=== PATIENT | female | born 1980 ===

== ENCOUNTER 2017-01-01 22:08 | Emergency (ER) | payer OTHER ==
[2017-01-01 22:08] VITALS: BMI 25.3
[2017-01-01 22:28] VITALS: RESP 20; O2SAT 98
[2017-01-01 22:45] LABS: RBC URINE 1 /hpf (0-3); URINE BILIRUBIN NEGATIVE (NEGATIVE); URINE BLOOD 2+ (NEGATIVE); URINE COLOR Yellow (YELLOW); URINE GLUCOSE (UA) NORMAL (Normal); URINE KETONE NEGATIVE (NEGATIVE); URINE LEUKOCYTE ESTERASE 1+ Leu/uL (Negative); URINE PROTEIN NEGATIVE (NEGATIVE); URINE UROBILINOGEN NORMAL mg/dL (0.2-1.0); WBC URINE 2 /hpf (0-5)
--- NOTE | 2017-01-01 22:52 | C.PDOC ---
History Of Present Illness 36 y/o female presents to ED with c/o of feeling tired, sleepy and nauseus x few days. Pt reports missed period LMP5. Pt denies abdominal pain, vaginal bleeding, but c/o of mild vaginal discharge with itching similar to past yeast infection. Pt is requesting test Time Seen by Provider: 01/01/17 22:35 Chief Complaint (Nursing): Female Genitourinary History Per: Patient History/Exam Limitations: no limitations Current Symptoms Are (Timing): Still Present Past Medical History Vital Signs: Last Vital Signs Temp 98.2 F 01/01/17 23:06 Pulse 106 H 01/01/17 23:06 Resp 20 01/01/17 23:06 BP 115/73 01/01/17 23:06 Pulse Ox 98 01/01/17 23:11 - Medical History PMH: Hypothyroidism Denies: Chronic Kidney Disease - [facility] Procedures REMOV INTRALUM VAG FB (12/24/14) Family History: States: Unknown Family Hx - Social History Hx Tobacco Use: No Hx Alcohol Use: No Hx Substance Use: No - Immunization History Hx Tetanus Toxoid Vaccination: No Hx Influenza Vaccination: Yes Hx Pneumococcal Vaccination: No Review Of Systems Constitutional: Negative for: Fever Gastrointestinal: Positive for: Nausea. Negative for: Vomiting, Abdominal Pain Genitourinary: Positive for: Vaginal Discharge, Other (vaginal itching). Negative for: Dysuria Musculoskeletal: Negative for: Back Pain Neurological: Negative for: Weakness, Numbness Physical Exam - Physical Exam Appears: Well, Non-toxic Skin: Normal Color Eye(s): bilateral: Normal Inspection, PERRL, Other (no conjunctival pallor) Cardiovascular: Rhythm Regular Respiratory: Normal Breath Sounds, No Wheezing Gastrointestinal/Abdominal: Normal Exam, Soft, No Tenderness Back: Normal Inspection, No CVA Tenderness Pelvic: Other (refused ) ED Course And Treatment O2 Sat by Pulse Oximetry: 98 Pulse Ox Interpretation: Normal Progress Note: Pt with (+) UCG, now asymptomatic, VSS. Pt reports no other c/o, Results d/w pt and she will follow up with COMMUNITY SUPPORT SPECIALIST for care. Return precautions given Disposition Counseled Patient/Family Regarding: Diagnosis, Need For Followup - Disposition Disposition: HOME/ ROUTINE Disposition Time: 23:07 Condition: STABLE Additional Instructions: Please follow up with OB/ CNC MILLING MACHINE OPERATOR Return to ER if worse Prescriptions: Clotrimazole 1% Vaginal [Lotrimin 1% Vaginal] 45 applic VG HS #1 tube Instructions: (ED), Vaginitis (ED) - Clinical Impression Clinical Impression: Vaginal candidiasis,
[2017-01-01 23:07] VITALS: BP 115/73; PULSE 106; TEMP 98.2
== END 2017-01-01 23:14 | disposition home or self-care (01) ==
LOC: C.ER 22:08
DX: B37.3 Candidiasis of vulva and vagina (principal); O98.811 Other maternal infectious and parasitic diseases complicating pregnancy, first trimester; Z3A.00 Weeks of gestation of pregnancy not specified

== ENCOUNTER 2017-03-14 23:34 | Emergency (ER) | payer OTHER ==
[2017-03-15 00:15] VITALS: BMI 24.9
[2017-03-15] MEDS ORDERED: Sodium Chloride 0.9% 1,000 ML IV ONE (00:20)
[2017-03-15 00:37] LABS: BASO % 0.4 % (0.0-2.0); EOS # 0.2 K/uL (0.0-0.7); EOS % 2.6 % (0.0-4.0); LYMPH # 1.6 K/uL (1.0-4.3); LYMPH % 17.2 % (20.0-40.0); MEAN CELL VOLUME 90.8 fL (81.0-99.0); MEAN CORPUSCULAR HEMOGLOBIN 31.1 pg (27.0-31.0); MEAN CORPUSCULAR HGB CONC 34.2 g/dL (33.0-37.0); MEAN PLATELET VOLUME 8.3 fL (7.2-11.7); MONO # 0.6 K/uL (0.0-0.8); MONO % 6.6 % (0.0-10.0); RED CELL DISTRIBUTION WIDTH 13.5 % (11.5-14.5); WHITE BLOOD COUNT 9.5 K/uL (4.8-10.8)
--- NOTE | 2017-03-15 00:50 | C.PDOC ---
History Of Present Illness 36 year old female presents to the ER after she went to the bathroom today noticed ludy amount of bright red blood when she wiped and some in the toilet. Patient states she had some pelvic cramping earlier today. Patient is currently approx 16 weeks , . She denies current pain, dysuria, vomiting, diarrhea, or fever. Time Seen by Provider: 03/14/17 23:52 Chief Complaint (Nursing): Female Genitourinary History Per: Patient History/Exam Limitations: no limitations Onset/Duration Of Symptoms: Hrs Current Symptoms Are (Timing): Better Severity: Mild Location Of Pain/Discomfort: Other (Pelvic) Radiation Of Pain To:: None Quality Of Discomfort: Cramping Associated Symptoms: denies: Fever, Vomiting, Diarrhea Exacerbating Factors: None Alleviating Factors: None Abnormal Vaginal Bleeding: Yes Past Medical History Reviewed: Historical Data, Nursing Documentation, Vital Signs Vital Signs: Last Vital Signs Temp 98.3 F 03/15/17 02:56 Pulse 82 03/15/17 02:56 Resp 20 03/15/17 02:56 BP 97/58 L 03/15/17 02:56 Pulse Ox 98 03/15/17 02:56 - Medical History PMH: Hypothyroidism - [facility] Procedures REMOV INTRALUM VAG FB (12/24/14) Family History: States: No Known Family Hx - Social History Hx Tobacco Use: No Hx Alcohol Use: No Hx Substance Use: No - Immunization History Hx Tetanus Toxoid Vaccination: No Hx Influenza Vaccination: Yes Hx Pneumococcal Vaccination: No Review Of Systems Except As Marked, All Systems Reviewed And Found Negative. Constitutional: Negative for: Fever Cardiovascular: Negative for: Chest Pain Respiratory: Negative for: Shortness of Breath Gastrointestinal: Negative for: Nausea, Vomiting, Abdominal Pain, Diarrhea Genitourinary: Positive for: Vaginal Bleeding, Pelvic Pain. Negative for: Dysuria, Vaginal Discharge Physical Exam - Physical Exam Appears: Well, Non-toxic, No Acute Distress Skin: Normal Color, Warm, Dry Oral Mucosa: Moist Cardiovascular: Rhythm Regular Respiratory: Normal Breath Sounds, No Rales, No Rhonchi, No Wheezing Gastrointestinal/Abdominal: Bowel Sounds, Soft, Tenderness (Mild TTP suprapubic area), No Guarding, No Rebound, Other (Gravid. Negative Mcburney's, Negative Comer's.) Back: No CVA Tenderness Neurological/Psych: Oriented x3 ED Course And Treatment - Laboratory Results Result Diagrams: 03/15/17 00:33 03/15/17 00:33 O2 Sat by Pulse Oximetry: 98 (RA) Pulse Ox Interpretation: Normal - CT Scan/US OB US Other Rad Studies (CT/US): Read By Radiologist, Radiology Report Reviewed CT/US Interpretation: Accession No. : [id number]. Patient Name / ID : JOSHUA GARCIA / [id number]. Exam Date : 03/15/2017 01:12:13 ( Approved ). Study Comment : Sex / Age : F / 36Y. Creator : IRLANDA DENNEY. Dictator : Bonus Clerk : Milieu Coordinator : IRLANDA DENNEY. Approver2 : Report Date : 2016 01:47:00. My Comment : . [facility]. [facility] Division of Radiology. [address] [place] [address]. Tel. no. . . . Patient Name: RADHA LEWIS . Pt. Address: [address] [place] [address] Rec #: [id number]. [place] [address]: Tonya Sigala DO Pt Order Location: [facility] : 1980 Female Age: 36 Order #: [id number]. Reason for exam: , pelvic pain, vaginal spotting. . . . . . Ultrasound. . . OB , LIMITED Exam Date: 03/15/17. . This imaging exam was performed at [facility]. EXAM: US Uterus, Limited. . CLINICAL HISTORY: 36 years old, female; Signs and symptoms; Lmp or gestational age (in weeks): 11/12/16; Antepartum complications; Bleeding; ; Additional info: , pelvic pain, vaginal spotting. . TECHNIQUE: Real-time ultrasound of the maternal uterus (limited) with image. documentation. . COMPARISON: No relevant prior studies available. . FINDINGS: Single intrauterine gestation is identified. Breech presentation. The placenta is posterior and low-lying (at 1.84 cm away from the cervical os) . The cervix measures 3.7 cm, and is closed. No detailed anatomy scan was performed. cardiac activity is identified at a rate of 134 beats per minute. The three-vessel cord inserts on the midline. Utilizing sonographic measurements, the approximate gestational age is 17 weeks. and 2 days. Estimated weight is 183.6 g. . . IMPRESSION: Single intrauterine gestation with an approximate gestational age of 17 weeks. and 2 days. cardiac activity is identified. The placenta is posterior and low-lying. The cervix measures 3.7 cm and is closed. Short term followup is recommended. . Dictated By: Irlanda Denney MD. Dictated Date/Time: 03/15/17146. Signed By: Irlanda Denney MD. Date Signed: 03/15/17146. Transcribed By: [employer]. Transcribe Date/Time: 03/15/17146. JOVANI/JOJO Progress Note: Blood work, urinalysis, and OB US ordered and reviewed. Patient given IV NS bolus. Reevaluation Time: 02:50 Reassessment Condition: Improved (On reassessment, patient is resting comfortably and states she feels well. On exam, abdomen is soft and nontender. Blood work shows mild anemia, was otherwise unremarkable. US also WNL, and UA (-) for UTI. Patient instructed to follow up with electrical instrument technician within 1 week. She understands she should return to ED if symptoms worsen.) Disposition Counseled Patient/Family Regarding: Studies Performed, Diagnosis, Need For Followup - Disposition Referrals: [facility] [Outside] Disposition: HOME/ ROUTINE Disposition Time: 02:50 Condition: STABLE Additional Instructions: FOLLOW UP WITH YOUR DISTRICT MANAGER POSTAL SERVICE WITHIN 1 WEEK USE TYLENOL IF NEEDED FOR PAIN RETURN TO ER IF SYMPTOMS WORSEN Instructions: (ED) Forms: [facility] [place] (Peruvian) Print Language: ANGUILLAN - POA Present On Arrival: None - Clinical Impression Clinical Impression: Pelvic pain affecting , Vaginal spotting - Scribe Statement The provider has reviewed the documentation as recorded by the Scribe Earl Alonsoes All medical record entries made by the Scribdonny were at my direction and personally dictated by me. I have reviewed the chart and agree that the record accurately reflects my personal performance of the history, physical exam, medical decision making, and the department course for this patient. I have also personally directed, reviewed, and agree with the discharge instructions and disposition.
[2017-03-15 00:54] LABS: ALB/GLOB RATIO 1.3 (1.0-2.1); ALKALINE PHOSPHATASE 50 U/L (38-126); ALT/SGPT 26 U/L (9-52); AST/SGOT 16 U/L (14-36); BILIRUBIN,TOTAL 0.2 mg/dL (0.2-1.3); BLOOD UREA NITROGEN 9 mg/dL (7-17); CARBON DIOXIDE 21 mmol/L (22-30); CHLORIDE 102 mmol/L (98-107); GFR AFRICAN-AMERICAN > 60; GLUCOSE,RANDOM 97 mg/dL (65-105); POTASSIUM 3.7 mmol/L (3.6-5.2); SODIUM 133 mmol/L (132-148); TOTAL PROTEIN 6.3 g/dL (6.3-8.3)
[2017-03-15 01:32] LABS: RBC URINE < 1 /hpf (0-3); URINE BILIRUBIN NEGATIVE (NEGATIVE); URINE BLOOD 1+ (NEGATIVE); URINE COLOR Colorless (YELLOW); URINE GLUCOSE (UA) NORMAL (Normal); URINE KETONE NEGATIVE (NEGATIVE); URINE LEUKOCYTE ESTERASE TRACE Leu/uL (Negative); URINE PROTEIN NEGATIVE (NEGATIVE); URINE UROBILINOGEN NORMAL mg/dL (0.2-1.0); WBC URINE < 1 /hpf (0-5)
[2017-03-15 01:47] VITALS: RESP 20
--- NOTE | 2017-03-15 01:47 | US ---
EXAM: US Uterus, Limited CLINICAL HISTORY: 36 years old, female; Signs and symptoms; Lmp or gestational age (in weeks): 11/12/16; Antepartum complications; Bleeding; ; Additional info: , pelvic pain, vaginal spotting TECHNIQUE: Real-time ultrasound of the maternal uterus (limited) with image documentation. COMPARISON: No relevant prior studies available. FINDINGS: Single intrauterine gestation is identified. Breech presentation. The placenta is posterior and low-lying (at 1.84 cm away from the cervical os). The cervix measures 3.7 cm, and is closed. No detailed anatomy scan was performed. cardiac activity is identified at a rate of 134 beats per minute. The three-vessel cord inserts on the midline. Utilizing sonographic measurements, the approximate gestational age is 17 weeks and 2 days. Estimated weight is 183.6 g. IMPRESSION: Single intrauterine gestation with an approximate gestational age of 17 weeks and 2 days. cardiac activity is identified. The placenta is posterior and low-lying. The cervix measures 3.7 cm and is closed. Short term followup is recommended.
[2017-03-15 02:57] VITALS: BP 97/58; PULSE 82; TEMP 98.3; O2SAT 98
== END 2017-03-15 03:05 | disposition home or self-care (01) ==
LOC: C.ER 23:34
DX: O26.852 Spotting complicating pregnancy, second trimester (principal); R10.2 Pelvic and perineal pain; Z3A.17 17 weeks gestation of pregnancy
CPT/HCPCS: 76815; 80053; 81001; 84702; 84703; 85025; 86850; 86900; 87086; 96360; 99284; J7040

== ENCOUNTER 2017-03-15 08:51 | Emergency (ER) | payer OTHER ==
[2017-03-15 08:51] VITALS: BMI 24.9
[2017-03-15 09:05] VITALS: RESP 18; O2SAT 98
--- NOTE | 2017-03-15 09:39 | C.PDOC ---
History Of Present Illness 36 year old female presents to the ED with complaints of vaginal bleeding worsening since last night. Patient is 17 weeks and was seen in the ED yesterday. Upon discharge, patient felt better and was no longer actively bleeding. Patient was instructed to return to ED if bleeding worsened. Ultrasound performed yesterday showed single intrauterine low line placenta and results were otherwise fine. Patient denies abdominal pain, nausea, vomiting, or fever. Time Seen by Provider: 03/15/17 09:31 Chief Complaint (Nursing): Female Genitourinary History Per: Patient History/Exam Limitations: no limitations Onset/Duration Of Symptoms: Hrs Current Symptoms Are (Timing): Still Present Severity: None Pain Scale Rating Of: 0 Associated Symptoms: denies: Fever, Chills, Nausea, Vomiting, Diarrhea Recent travel outside of the [place]: No Additional History Per: Prior Records Abnormal Vaginal Bleeding: Yes Past Medical History Reviewed: Historical Data, Nursing Documentation, Vital Signs Vital Signs: Last Vital Signs Temp 97.4 F L 03/15/17 12:25 Pulse 84 03/15/17 12:25 Resp 18 03/15/17 12:25 BP 120/77 03/15/17 12:25 Pulse Ox 98 03/15/17 12:46 - Medical History PMH: Hypothyroidism, Migraine - [facility] Procedures REMOV INTRALUM VAG FB (12/24/14) Family History: States: Unknown Family Hx - Social History Hx Tobacco Use: No Hx Alcohol Use: No Hx Substance Use: No - Immunization History Hx Tetanus Toxoid Vaccination: No Hx Influenza Vaccination: Yes Hx Pneumococcal Vaccination: No Review Of Systems Constitutional: Negative for: Fever, Chills Cardiovascular: Negative for: Chest Pain Respiratory: Negative for: Shortness of Breath Gastrointestinal: Negative for: Nausea, Vomiting, Abdominal Pain, Diarrhea Genitourinary: Positive for: Vaginal Bleeding. Negative for: Dysuria, Pelvic Pain Physical Exam - Physical Exam Appears: Non-toxic, No Acute Distress Skin: Warm, Dry Head: Atraumatic Eye(s): bilateral: Normal Inspection Oral Mucosa: Moist Neck: Supple Chest: Symmetrical, No Deformity Cardiovascular: Rhythm Regular Respiratory: Normal Breath Sounds, No Rales, No Rhonchi, No Wheezing Gastrointestinal/Abdominal: Soft, No Tenderness, No Distention, No Guarding, No Rebound Pelvic: Vaginal Bleeding (small amount of dark bloody discharge ), No Cervix Open, No Tender Uterus Neurological/Psych: Oriented x3, Normal Speech, Normal Cognition, Normal Motor, Normal Sensation ED Course And Treatment - Laboratory Results Result Diagrams: 03/15/17 10:15 O2 Sat by Pulse Oximetry: 98 (room air ) - CT Scan/US Pelvic US Other Rad Studies (CT/US): Read By Radiologist, Radiology Report Reviewed CT/US Interpretation: Accession No. : [id number]. Patient Name / ID : JOSHUA GARCIA / [id number]. Exam Date : 03/15/2017 10:13:18 ( Approved ). Study Comment : Sex / Age : F / 36Y. Creator : Reno Curran MD. Dictator : Reno Curran MD. Math Coach : Process Development Manager : Reno Curran MD. Approver2 : Report Date : 03/15/2017 10:56:55. My Comment : . PROCEDURE: Limited OB Pelvic Ultrasound. HISTORY: 17 wks preg, bleeding, seen yesterday , bleeds more. COMPARISON: Obstetric ultrasonography 03/15/2017. FINDINGS: Limited obstetric ultrasound was performed to identify cardiac activity. Emergency department staff was unable to identify cardiac activity on return the patient back to the emergency room following and emergent room visit overnight on 03/15/2017 1:15 a.m.. UTERUS: A single viable intrauterine gestation identified with cardiac activity recorded at 143 beats per minute. Posterior placenta unchanged in position posteriorly, remaining low lying. CERVIX: Stable. RIGHT OVARY: Not captured in this examination as per protocol. LEFT OVARY: Not captured in this examination as per protocol. FREE FLUID: None. OTHER FINDINGS: None. IMPRESSION: A single viable intrauterine gestation is identified with cardiac activity reported 143 beats per minute. A complete obstetric ultrasound can be performed on follow-up if clinically warranted. Referring physician requests is specifically to have this examination performed only for registration of the cardiac activity at the patient continues to spontaneously bleed vaginally. Please see separate report also dated 03/15/2017 performed at 1:15 a.m. overnight. - Physician Consult Information Time Consulting Physician Contacted: 09:40 Physician Contacted: Julitase Cornell Ayoub Outcome Of Conversation: Case discussed with Dr. Ayoub and agreed the US shows no evidence of placenta previa and no intervention is needed due to it being early in the . Dr. Ayoub recommends observation at home, repeat US to confirm heart rate and repeat CBC. Disposition - Disposition Disposition: HOME/ ROUTINE Disposition Time: 12:27 Condition: STABLE Additional Instructions: Follow up with PMD and OBGYN within 1-2 days. Return to ED if feel worse. Instructions: Threatened Miscarriage (ED) Forms: Work/School/Gym Excuse, [facility] (Haitian) - Clinical Impression Clinical Impression: Vaginal bleeding before 22 weeks gestation
[2017-03-15 10:19] LABS: BASO # 0.1 K/uL (0.0-0.2); BASO % 0.6 % (0.0-2.0); EOS # 0.1 K/uL (0.0-0.7); EOS % 1.2 % (0.0-4.0); HEMATOCRIT 30.3 % (34.0-47.0); LYMPH % 11.1 % (20.0-40.0); MEAN CORPUSCULAR HGB CONC 34.4 g/dL (33.0-37.0); MEAN PLATELET VOLUME 7.7 fL (7.2-11.7); MONO # 0.8 K/uL (0.0-0.8); MONO % 8.4 % (0.0-10.0); NRBC % 0.1 % (0.0-2.0); RED CELL DISTRIBUTION WIDTH 13.5 % (11.5-14.5); WHITE BLOOD COUNT 9.4 K/uL (4.8-10.8)
--- NOTE | 2017-03-15 10:58 | US ---
PROCEDURE: Limited OB Pelvic Ultrasound HISTORY: 17 wks preg, bleeding, seen yesterday, bleeds more COMPARISON: Obstetric ultrasonography 03/15/2017. FINDINGS: Limited obstetric ultrasound was performed to identify cardiac activity. Emergency department staff was unable to identify cardiac activity on return the patient back to the emergency room following and emergent room visit overnight on 03/15/2017 1:15 a.m.. UTERUS: A single viable intrauterine gestation identified with cardiac activity recorded at 143 beats per minute. Posterior placenta unchanged in position posteriorly, remaining low lying. CERVIX: Stable RIGHT OVARY: Not captured in this examination as per protocol. LEFT OVARY: Not captured in this examination as per protocol. FREE FLUID: None. OTHER FINDINGS: None. IMPRESSION: A single viable intrauterine gestation is identified with cardiac activity reported 143 beats per minute. A complete obstetric ultrasound can be performed on follow-up if clinically warranted. Referring physician requests is specifically to have this examination performed only for registration of the cardiac activity at the patient continues to spontaneously bleed vaginally. Please see separate report also dated 03/15/2017 performed at 1:15 a.m. overnight.
[2017-03-15 12:38] VITALS: BP 120/77; PULSE 84; TEMP 97.4
== END 2017-03-15 12:39 | disposition home or self-care (01) ==
LOC: C.ER 08:51
DX: O20.8 Other hemorrhage in early pregnancy (principal); Z3A.17 17 weeks gestation of pregnancy